=== PATIENT | male | born 1980 | race Caucasian/White ===

== ENCOUNTER 2018-05-19 08:02 | Emergency (ER) | payer SELFPAY ==
[~2018-05-19] VITALS: Ht 185.4 cm; Wt 65.8 kg
[~2018-05-19 08:02] MED LIST: HYDR-3714 PO; ULT/50 PO
[2018-05-19] MEDS ORDERED: ACETAMINOPHEN 500 MG TAB PO STA (08:09)
[2018-05-19 08:13] VITALS: Ht 185.4 cm; Wt 65.8 kg
[2018-05-19] MEDS ORDERED: ONDANSETRON 4MG OD TAB PO ONE (08:15)
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
--- NOTE | 2018-05-19 09:37 | DIAGNOSTIC IMAGING REPORT ---
RIGHT SHOULDER 3 VIEWS CLINICAL HISTORY: Right shoulder pain. FINDINGS: 3 views of the right shoulder are obtained. No prior studies are available for comparison at the time of dictation. The skeletal structures are well mineralized. No fracture or dislocation is seen. The glenohumeral and acromioclavicular joints are preserved. The overlying soft tissues are within normal limits. The imaged right lung parenchyma appears clear. IMPRESSION: There is no radiographic evidence of right shoulder fracture or dislocation. Electronically signed by: Corey Youssef M.D. 05/19/2018 9:36 AM Dictated Date/Time: 05/19/2018 9:35 AM
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
[2018-05-19 10:10] VITALS: BP 135/79; PULSE 80; O2SAT 96
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
== END 2018-05-19 10:30 | disposition home or self-care (01) ==
LOC: EDBD 08:02 → C.EDC 08:04
DX: S06.0X0A Concussion without loss of consciousness, initial encounter (principal); S00.81XA Abrasion of other part of head, initial encounter; S40.011A Contusion of right shoulder, initial encounter; Y04.0XXA Assault by unarmed brawl or fight, initial encounter; Y92.149 Unspecified place in prison as the place of occurrence of the external cause; F11.90 Opioid use, unspecified, uncomplicated; M54.9 Dorsalgia, unspecified; G89.29 Other chronic pain